=== PATIENT | female | born 1960 | race Caucasian/White ===

== ENCOUNTER 2024-02-08 14:27 | Emergency (ER) | payer BC ==
[~2024-02-08] VITALS: Ht 167.6 cm; Wt 86.0 kg
[2024-02-08] MEDS ORDERED: ketorolac trometh. 30mg/ml inj. IM ONE (14:35)
[2024-02-08] MEDS: dexamethasone sod phosphate 10mg/ml inj PO STA (15:06)
[2024-02-08] MEDS: famotidine 20mg tablet PO ONE (15:06)
[2024-02-08] MEDS: ketorolac tromethamine 15mg/ml inj. IM ONE (15:06)
[2024-02-08] MEDS: diphenhydrAMINE 50 mg/ml inj IM ONE (15:06)
[2024-02-08] MEDS ORDERED: FAMO-129 PO (15:36)
[2024-02-08] MEDS ORDERED: HYDR-4697 TOP (15:36)
[2024-02-08 16:09] VITALS: BP 125/85; PULSE 76; RESP 15; TEMP 98.6; O2SAT 98
== END 2024-02-08 15:55 | disposition home or self-care (01) ==
LOC: ER 14:27
DX: S50.861A Insect bite (nonvenomous) of right forearm, initial encounter (principal); Z86.718 Personal history of other venous thrombosis and embolism; Z90.49 Acquired absence of other specified parts of digestive tract; Z79.899 Other long term (current) drug therapy; W57.XXXA Bitten or stung by nonvenomous insect and other nonvenomous arthropods, initial encounter; Y93.89 Activity, other specified; Y92.89 Other specified places as the place of occurrence of the external cause; Y99.8 Other external cause status
CPT/HCPCS: 96372; 99284; J1100; J1200; J1885